=== PATIENT | female | born 1945 | race Hispanic/Latino ===

== ENCOUNTER → 2018-02-04 | Outpatient (CLI) | payer OTHER | END | disposition home or self-care (01) | LOC: RAH 08:16 | PROVIDERS: ATTEND Family Medicine | DX: Z12.31 Encounter for screening mammogram for malignant neoplasm of breast (principal) | CPT/HCPCS: 77067 ==

== ENCOUNTER → 2019-02-05 | Outpatient (CLI) | payer OTHER | END | disposition home or self-care (01) | LOC: RAH 08:51 | PROVIDERS: ATTEND Family Medicine | DX: Z12.31 Encounter for screening mammogram for malignant neoplasm of breast (principal) | CPT/HCPCS: 77067 ==

== ENCOUNTER 2019-06-20 00:57 | Emergency (ER) | payer OTHER ==
[2019-06-20 01:30] LABS: BASOPHILS % (AUTO) 0.5 % (0.0-5.0); EOSINOPHILS % (AUTO) 1.2 % (0.0-8.0); HEMATOCRIT 39.3 % (36-48); LYMPHOCYTES % (AUTO) 39.6 % (21.0-51.0); MEAN CORPUSCULAR HEMOGLOBIN 31.3 pg (27.0-33.0); MEAN CORPUSCULAR HGB CONC 34.5 g/dL (32.0-36.0); MEAN CORPUSCULAR VOLUME 90.9 fL (79-99); MONOCYTES % (AUTO) 7.7 % (3.0-13.0); NUCLEATED RED BLOOD CELLS 0.1 % (0.0-0.19); PLATELET COUNT (AUTO) 190 K/uL (130-400); RED BLOOD CELL COUNT(AUTO) 4.32 MIL/uL (4.00-5.50); RED CELL DISTRIBUTION WIDTH 12.9 % (11.0-15.5); WHITE BLOOD COUNT (AUTO) 5.7 K/uL (4.8-10.8)
[2019-06-20 01:39] LABS: POTASSIUM 3.7 mmol/L (3.5-5.1)
[2019-06-20 01:44] LABS: ALBUMIN 4.1 g/dL (3.5-5.0); BILIRUBIN,TOTAL 0.5 mg/dL (0.2-1.0); TOTAL PROTEIN, SERUM 7.9 g/dL (6.0-8.3)
[2019-06-20 01:45] LABS: INR 1.01 (0.85-1.15); PARTIAL THROMBOPLASTIN TIME 25.2 SEC (26.3-35.5); PROTHROMBIN TIME 10.6 SEC (9.6-11.6)
[2019-06-20] MEDS ORDERED: LIDOCAINE HCL 2% VISCOUS 15 ML UDCUP ONE (02:13)
[2019-06-20] MEDS ORDERED: MAG HYDROX/AL HYDROX/SIMETH ES 30 ML SUSP UDCUP ONE (02:13)
[2019-06-20] MEDS ORDERED: FAMOTIDINE/PF 20 MG/2 ML VIAL IV ONE (02:14)
== END 2019-06-20 03:58 | disposition home or self-care (01) ==
LOC: EDH 00:57
DX: K29.70 Gastritis, unspecified, without bleeding (principal); I10 Essential (primary) hypertension; E78.5 Hyperlipidemia, unspecified; Z88.2 Allergy status to sulfonamides; Z90.49 Acquired absence of other specified parts of digestive tract
CPT/HCPCS: 36415; 80053; 82550; 83690; 84484; 85025; 85610; 85730; 93005; 96374; 99285; J3490

== ENCOUNTER → 2022-01-25 | Outpatient (CLI) | payer OTHER | END | disposition home or self-care (01) | LOC: RAH 09:36 | PROVIDERS: ATTEND Family Medicine | DX: Z12.31 Encounter for screening mammogram for malignant neoplasm of breast (principal) | CPT/HCPCS: 77067 ==

== ENCOUNTER → 2022-03-28 | Outpatient (CLI) | payer OTHER | END | disposition home or self-care (01) | LOC: RAH 08:29 | PROVIDERS: ATTEND Family Medicine | DX: K76.0 Fatty (change of) liver, not elsewhere classified (principal); R10.9 Unspecified abdominal pain | CPT/HCPCS: 76700; 76856 ==

== ENCOUNTER → 2023-02-02 | Outpatient (CLI) | payer OTHER | END | disposition home or self-care (01) | LOC: RAH 08:06 | PROVIDERS: ATTEND Family Medicine | DX: Z12.31 Encounter for screening mammogram for malignant neoplasm of breast (principal) | CPT/HCPCS: 77067 ==

== ENCOUNTER 2024-01-17 21:29 | Emergency (ER) | payer OTHER ==
[~2024-01-17] VITALS: Ht 152.4 cm; Wt 64.9 kg
[2024-01-17] MEDS ORDERED: CLONIDINE HCL 0.1 MG TABLET PO ONE (22:00)
[2024-01-17 22:33] VITALS: BP 144/84; PULSE 102; RESP 20; O2SAT 96
[2024-01-17] MEDS: ACETAMINOPHEN 500 MG TABLET PO ONE (23:18)
== END 2024-01-17 23:58 | disposition home or self-care (01) ==
LOC: EDH 21:29
DX: I10 Essential (primary) hypertension (principal); F41.9 Anxiety disorder, unspecified; Z90.49 Acquired absence of other specified parts of digestive tract; Z88.2 Allergy status to sulfonamides; Z79.899 Other long term (current) drug therapy
CPT/HCPCS: 82948; 93005

== ENCOUNTER → 2024-02-15 | Outpatient (CLI) | payer OTHER | END | disposition home or self-care (01) | LOC: RAH 11:18 | PROVIDERS: ATTEND Family Medicine | DX: Z12.31 Encounter for screening mammogram for malignant neoplasm of breast (principal) | CPT/HCPCS: 77067 ==

== ENCOUNTER → 2025-02-16 | Outpatient (CLI) | payer OTHER | END | disposition home or self-care (01) | LOC: RAH 10:04 | PROVIDERS: ATTEND Family Medicine | DX: Z12.31 Encounter for screening mammogram for malignant neoplasm of breast (principal) | CPT/HCPCS: 77067 ==